=== PATIENT | female | born 1945 | race Caucasian/White ===

== ENCOUNTER 2023-07-18 04:08 | Emergency (ER) | payer MEDICARE, OTHER, SELFPAY ==
[2023-07-18] VITALS (11 sets, daily range): BP systolic 93–189; BP diastolic 73–120; PULSE 93–107; RESP 17–23; TEMP 36.8; O2SAT 93–98; BMI 45.7
--- NOTE | 2023-07-18 04:19 | ECG_ITS ---
[facility] Test Date: 2023-07-18 Pat Name: Hema Darden Department: Room: Gender: Female Service Desk Specialist: : 1945 Requested By: Rolando Perez Order Number: [id number] Jose MD: Ludin Middleton M.D. Measurements Intervals [place] Rate: 104 P: 39 ID: [id number] QRS: 32 QRSD: 81 T: 147 QT: 290 QTc: 382 Interpretive Statements Regular rhythm, possibly sinus tachycardia Heavy baseline artifact. Need to repeat ST DEVIATION AND MODERATE T-WAVE ABNORMALITY, CONSIDER LATERAL ISCHEMIA [-0.1+ mV T-WAVE IN I/aVL/V5/V6] No previous ECG available for comparison Electronically Signed On 07-18-2023 22:06:25 TOWING PILOT by Ludin Middleton M.D. [id number]
--- NOTE | 2023-07-18 04:29 | XRR_ITS ---
PROCEDURE INFORMATION: Exam: XR Chest Exam date and time: 07/18/2023 4:35 AM Age: 78 years old Clinical indication: Chest pressure; Patient HX: EMS arrival from detention for chest pain. Unable to obtain further history due to poor mentation. ; Additional info: C p TECHNIQUE: Imaging protocol: Radiologic exam of the chest. Views: 1 view. COMPARISON: No relevant prior studies available. FINDINGS: Lungs: Right lower lobe infiltrate. Pleural spaces: Unremarkable. No pleural effusion. No pneumothorax. Heart/Mediastinum: Cardiomegaly Bones/joints: Unremarkable. XR/XR chest 1V portable [id number] IMPRESSION: 1. Right lower lobe infiltrate. Pneumonia not excluded. 2. Cardiomegaly
--- NOTE | 2023-07-18 05:42 | W.ED.CHESTPA ---
HPI - Chest Pain General: Chief Complaint: Chest Pain Stated Complaint: CP Time Seen by Provider: 07/18/23 05:40 Source: patient Mode of arrival: ambulatory History of Present Illness: 78-year-old female presents emergency room complaining of chest and abdominal pain. She was recently hospitalized for sepsis. Per the patient she has not been feeling well in the last 4 days she is normally on oxygen at 2 L/min. She also tells me she was admitted with a pneumonia and received a PICC line for long-term antibiotics. I do not have any copies of the discharge summary or any labs that were done during the hospitalization she is not currently on antibiotics. She states chest and abdominal pain and resolved. She is on her baseline 2 L of oxygen. MD complaint: chest pain Onset (ago): day(s) (4) Timing of current episode: episodic Onset: during rest Pain location: substernal Pain radiation: none Severity: mild Relieving factors: nitroglycerin Exacerbating factors: nothing Associated symptoms: Reports dyspnea; Deny abdominal pain, diaphoresis, fever(s), leg edema, nausea, palpitations, sense of impending doom, syncope or vomiting Review of Systems Const: Denies: fever(s), chills or diaphoresis Card: Denies: chest pain, palpitations or syncope Resp: Reports: dyspnea GI: Denies: abdominal pain, nausea or vomiting : Denies: dysuria, urinary frequency or urinary urgency Musc: Denies: neck pain or back pain Skin/Breast: Denies: rash PFSH ED PFSH: Medical History (Updated 07/18/23 @ 15:21 by Amrit Samuels DO) Anemia Fibromyalgia Hyperlipidemia Hypertension Morbid obesity Sleep apnea Type 2 diabetes mellitus Physical Exam Const: GENERAL APPEARANCE: cooperative ORIENTATION/CONSCIOUSNESS: Yes awake HENMT: COMMON NORMALS: normocephalic, atraumatic and hearing grossly normal bilaterally HEAD & SCALP: normocephalic and atraumatic Resp: COMMON NORMALS: normal respiratory effort, No retractions and No use of accessory muscles AUSCULTATION: rales and wheezes Cardio: COMMON NORMALS: regular rhythm and No murmurs present (Cardio) RATE: tachycardic RHYTHM: regular rhythm GI: COMMON NORMALS: Soft to palpation and No hepatosplenomegaly present AUSCULTATION: Yes normoactive bowel sounds PALPATION: Yes Soft to palpation, No Tenderness to palpation present (GI), No Guarding due to palpation present (GI) and Yes No hepatosplenomegaly present Extremity: COMMON NORMALS: normal to inspection, capillary refill normal, no clubbing, cyanosis or edema, no calf tenderness and no pedal edema Skin: COMMON NORMALS: no rashes or lesions noted GENERAL SKIN EXAM: no rashes or lesions noted Course Vital Signs: Vital signs: Vital Signs Temperature 98.3 F 07/18/23 04:09 Pulse Rate 103 H 07/18/23 12:49 Respiratory Rate 22 H 07/18/23 07:00 Blood Pressure 181/106 07/18/23 12:49 Pulse Oximetry 98 07/18/23 12:49 Oxygen Delivery Me thod Nasal Cannula 07/18/23 12:49 Oxygen Flow Rate 2 07/18/23 12:49 MDM - Chest Pain Medical Decision Making if not improving may need to have endoscopy done. Recent hospitalization outpatient has COVID as well cover for secondary infection with vancomycin and Zosyn. Troponin elevated although patient has no acute EKG changes she was given Lovenox and CTA done to ensure the patient did not have PE associated with her COVID which could also Dr. the troponin. CTA is negative for PE but did show questionable right renal hematoma CT of the abdomen pelvis done shows right renal hematoma. We were not able to get records while she was here patient was previously at [facility] and will contact them regarding transfer back there they states that was present previously her hemoglobin is down slightly. Will transfer back to any [facility] for further cardiac evaluation. She will need to be there in the event that the hematoma worsens while she is getting anticoagulants they have available interventional radiology and urology should procedure need to be done. Medical Records I reviewed the patient's medical records. Lab Data I reviewed the patient's lab results. 07/18/23 09:27 07/18/23 08:00 Radiology Impressions Chest X-Ray 07/18/23 04:29 IMPRESSION: 1. Right lower lobe infiltrate. Pneumonia not excluded. 2. Cardiomegaly Chest CTA 07/18/23 08:35 IMPRESSION: 1. Right lower lobe infiltrate and small pleural effusion. 2. Patchy ground-glass opacities throughout both lung valdez. 3. No pulmonary embolism. 4. Partially visualized is fluid and/or hemorrhage within the right renal fossa. Dedicated CT of the abdomen is recommended Abdomen/Pelvis CT 07/18/23 10:56 IMPRESSION: Sub capsular right renal hematoma measuring 15 mm in thickness. Large amount of hemorrhage in the right pararenal space. The patient has no reported history of injury. COMMENTS: Consistent with the [employer]'s Incidental Findings Committee white paper (J Am Melva Radiol 2018): Any incidental renal lesion less than 1 cm or classified as too small to characterize, or any incidental cystic renal lesion characterized as simple-appearing, is likely benign. No follow-up imaging is recommended for these lesions per consensus recommendations based on imaging criteria. ADDENDUM: 07/18/23 1208 THIS REPORT CONTAINS FINDINGS THAT MAY BE CRITICAL TO PATIENT CARE. The findings were verbally communicated via telephone conference with AMRIT SAMUELS at 12:06 PM LEVERS LACE MACHINE OPERATOR on 07/18/2023. The findings were acknowledged and understood. Laboratory Results WBC 10.21 10^3/uL (3.29-11.43) 07/18/23 09:27 RBC 3.05 10^6/uL (3.85-5.65) L 07/18/23 09:27 Hgb 8.60 g/dL (11.27-16.99) L 07/18/23 09:27 Hct 27.3 % (36-47) L 07/18/23 09:27 MCV 89.5 fl (85-98) 07/18/23 09:27 MCH 28.2 pg (27-33) 07/18/23 09:27 MCHC 31.5 g/dL (30-55) 07/18/23 09:27 RDW 14.6 % (12.1-15.1) 07/18/23 09:27 Plt Count 374 10^3/cmm (157-399) 07/18/23 09:27 MPV 10.4 fL (7.4-10.4) 07/18/23 09:27 Lymph % (Auto) Not Reportable 07/18/23 09:27 [place] % (Auto) Not Reportable 07/18/23 09:27 Lymph # (Auto) Not Reportable 07/18/23 09:27 [place] # (Auto) Not Reportable 07/18/23 09:27 Total Counted 100 (0-100) 07/18/23 09:27 Atypical Lymphs % 0.0 % (0-5) 07/18/23 09:27 Absolute Neutrophils 7.1 10^3/cmm (1.4-6.5) H 07/18/23 09:27 Segmented Neutrophils 55 % 07/18/23 09:27 Abs Segm Neuts (Man) 5.6 10/cmm (1.6-7.1) 07/18/23 09:27 Band Neutrophils 15.0 % 07/18/23 09:27 Abs Band Neuts (Man) 1.5 10^3/cmm (0.0-1.2) H 07/18/23 09:27 Absolute Lymphocytes 1.8 10^3/cmm (1.2-3.4) 07/18/23 09:27 Lymphocytes (Manual) 18 % 07/18/23 09:27 Monocytes (Manual) 10.0 % 07/18/23 09:27 Absolute Monocytes 1.0 10^3/cmm (0.1-0.6) H 07/18/23 09:27 Eosinophils (Manual) 0 % 07/18/23 09:27 Absolute Eosinophils 0.0 10^3/cmm (0.0-0.7) 07/18/23 09:27 Basophils (Manual) 0.0 % 07/18/23 09:27 Absolute Basophils 0.0 10^3/cmm (0.0-0.2) 07/18/23 09:27 Metamyelocytes 1.0 % 07/18/23 09:27 Myelocytes 1.0 % 07/18/23 09:27 Nucleated RBCs 1.0 /100WBC (0-1) 07/18/23 09:27 Platelet Estimate Normal (Normal) 07/18/23 09:27 PT 19.10 SECONDS (12.1-14.9) H 07/18/23 14:18 INR 1.55 (0.8-1.2) H 07/18/23 14:18 APTT 55.1 SECONDS (23.9-36.7) H 07/18/23 14:18 Sodium 134 mmol/L (136-145) L 07/18/23 08:00 Potassium 3.7 mmol/L (3.5-5.1) 07/18/23 08:00 Chloride 98 mmol/L (98-107) 07/18/23 08:00 Carbon Dioxide 22 mmol/L (22-29) 07/18/23 08:00 Anion Gap 17.7 (5-19) 07/18/23 08:00 BUN 39 mg/dL (8-23) H 07/18/23 08:00 Creatinine 1.6 mg/dL (0.5-0.9) H 07/18/23 08:00 GFR Calculation Not Reportable 07/18/23 08:00 Glucose 96 mg/dL (65-115) 07/18/23 08:00 POC Glucose 114 mg/dL (70-110) H 07/18/23 05:58 Calculated Osmolality 287 mOsm/kg (285-295) 07/18/23 08:00 Lactic Acid 1.3 mmol/L (0.5-2.2) 07/18/23 08:00 Calcium 9.3 mg/dL (8.5-10.5) 07/18/23 08:00 Magnesium 1.6 mg/dL (1.7-2.3) L 07/18/23 08:00 Total Bilirubin 0.7 mg/dL (0.15-1.2) 07/18/23 08:00 AST 25 U/L (0-32) 07/18/23 08:00 ALT 23 U/L (0-33) 07/18/23 08:00 Alkaline Phosphatase 99 U/L (35-105) 07/18/23 08:00 Creatine Kinase 32 U/L (26-192) 07/18/23 08:00 Troponin T Baseline 236 ng/L (0-10) H* 07/18/23 08:00 Troponin T 120 Minute 229.2 ng/L (0-10) H 07/18/23 09:27 Delta Troponin T -6.8 ABS# (0-10) L 07/18/23 09:27 Troponin T Hi Sens 6Hr 222.6 ng/L (0-10) H 07/18/23 14:18 Troponin T Hi Sens 6Hr Delta -13.4 ng/L (0-12) L 07/18/23 14:18 NT-Pro-B Natriuret Pep 6542 pg/mL (0-450) H 07/18/23 08:00 Total Protein 6.7 g/dL (6.6-8.7) 07/18/23 08:00 Albumin 2.8 g/dL (3.5-5.2) L 07/18/23 08:00 Globulin 3.9 g/dL (1.3-4.6) 07/18/23 08:00 Lipase 102 U/L (13-60) H 07/18/23 08:00 Urine Color Yellow (Yellow) 07/18/23 06:29 Urine Appearance Clear (CLEAR) 07/18/23 06:29 Urine pH 5 (5-7) 07/18/23 06:[address] 1.010 (1.005-1.030) 07/18/23 06:29 Urine Protein 1+ (Negative) H 07/18/23 06:29 Urine Glucose (UA) Norm (Normal) 07/18/23 06:29 Urine Ketones Negative (Negative) 07/18/23 06:29 Urine Blood Trace (Negative) H 07/18/23 06:29 Urine Nitrate Negative (Negative) 07/18/23 06:29 Urine Bilirubin Neg (Negative) 07/18/23 06:29 Urine Urobilinogen Norm mg/dL (Negative) 07/18/23 06:29 Ur Leukocyte Esterase Negative (Negative) 07/18/23 06:29 Urine RBC Rare /hpf (0-2) 07/18/23 06:29 Urine WBC Rare /hpf (0-5) 07/18/23 06:29 Ur Squamous Epith Cells 0-4 /hpf (0-5) H 07/18/23 06:29 Amorphous Sediment Not Reportable 07/18/23 06:29 Urine Bacteria Trace /hpf (NONE) 07/18/23 06:29 Coronavirus 229E (PCR) Not detected (NOT DETECT) 07/18/23 06:02 Influenza Type A Ag negative (Negative) 07/18/23 06:02 Influenza Type B Ag negative (Negative) 07/18/23 06:02 SARS-CoV-2 (PCR) Detected (NOT DETECT) A 07/18/23 06:02 All radiology interpretation(s) finalized by discharge Discharge Plan Discharge Patient Disposition: Xfer Short-Term Hosp Clinical Impression: COVID-19, Pneumonia, Elevated troponin I level, Renal hematoma, right Condition: Stable Referrals: Thanh Chino MD [Primary Care Provider] - Patient Instructions: Opioid Safety, Pain Management Coding Level of Care Code ED Advisory Intern for Horacio Villegas
[2023-07-18 06:03] LABS: Glucose Point of Care 114 mg/dL (70-110)
--- NOTE | 2023-07-18 06:29 | ECG_ITS ---
[facility] Test Date: 2023-07-18 Pat Name: Hema Darden Department: Room: Gender: Female Metallography Teacher: : 1945 Requested By: Rolando Perez Order Number: [id number] Jose MD: Ludin Middleton M.D. Measurements Intervals [place] Rate: 96 P: 0 [place]: 0 QRS: 34 QRSD: 85 T: 48 QT: 318 QTc: 404 Interpretive Statements ATRIAL FIBRILLATION NONSPECIFIC ST & T-WAVE ABNORMALITY ABNORMAL RHYTHM ECG Compared to ECG 07/18/2023 04:09:06 Sinus tachycardia no longer present Possible ischemia no longer present T-wave abnormality still present Electronically Signed On 07-18-2023 22:19:40 RUBBER PRESS TENDER by Ludin Middleton M.D. [id number]
[2023-07-18 06:53] LABS: Influenza A by IFA negative (Negative); Influenza B by IFA negative (Negative)
[2023-07-18 06:58] LABS: Add Urine Microscopic? YES; Bilirubin Urine Neg (Negative); Blood Urine Trace (Negative); Glucose Urine UA Norm (Normal); Ketones Urine Negative (Negative); Leukocyte Esterase Urine Negative (Negative); Nitrate Urine Negative (Negative); Protein Urine 1+ (Negative); Urine Appearance Clear (CLEAR); Urine Color Yellow (Yellow); Urobilinogen Urine Norm (Negative); pH Urine 5 (5-7)
[2023-07-18 07:00] LABS: Add Urine Culture? No; Bacteria Urine TRACE /hpf; RBC Urine RARE /hpf (0-2); Squamous Epithelial Cell Urine 0-4 /hpf (0-5); WBC Urine RARE /hpf (0-5)
[2023-07-18 08:16] LABS: Adenovirus Not Detected (NOT DETECT); Chlamydia Pneumoniae Not Detected (NOT DETECT); Coronavirus 229E,HKU1,NL63,OC4 Not Detected (NOT DETECT); Human Metapneumovirus Not Detected (NOT DETECT); Human Rhinovirus/Enterovirus Not Detected (NOT DETECT); Influenza A Not Detected (NOT DETECT); Influenza A H1 Not Detected (NOT DETECT); Influenza A H1-2009 Not Detected (NOT DETECT); Influenza A H3 Not Detected (NOT DETECT); Influenza B Not Detected (NOT DETECT); Mycoplasma Pneumoniae Not Detected (NOT DETECT); Parainfluenza Virus Type 1 Not Detected (NOT DETECT); Parainfluenza Virus Type 2 Not Detected (NOT DETECT); Parainfluenza Virus Type 3 Not Detected (NOT DETECT); Parainfluenza Virus Type 4 Not Detected (NOT DETECT); Respiratory Syncytial Virus A Not Detected (NOT DETECT); Respiratory Syncytial Virus B Not Detected (NOT DETECT)
[2023-07-18 08:21] LABS: SARS-COV-2 Detected (NOT DETECT)
[2023-07-18] MEDS: piperacillin-tazobactam 3.375 GM in sodium chloride 0.9% (plus) 50 ML IV (08:21)
[2023-07-18 08:29] LABS: Troponin(5th) Baseline 236 ng/L (0-10)
[2023-07-18 08:30] LABS: Lactic Sepsis W/Reflex 1.3 mmol/L (0.5-2.2)
--- NOTE | 2023-07-18 08:35 | CTR_ITS ---
PROCEDURE INFORMATION: Exam: CTA Chest With Contrast Exam date and time: 07/18/2023 10:21 AM Age: 78 years old Clinical indication: Shortness of breath; Additional info: Hypoxia, chest pain, +covid TECHNIQUE: Imaging protocol: Computed tomographic angiography of the chest with contrast. Exam focused on the arteries. 3D rendering (Not supervised by radiologist): MIP and/or 3D reconstructed images were created by the technologist. Radiation optimization: All CT scans at this facility use at least one of these dose optimization techniques: automated exposure control; mA and/or kV adjustment per patient size (includes targeted exams where dose is matched to clinical indication); or iterative reconstruction. Contrast material: OMNI 350; Contrast volume: 82 ml; Contrast route: INTRAVENOUS (IV); REPORTING DATA: Count of CT and Cardiac NM exams in prior 12 months: This patient has received 0 known CTs and 0 known cardiac nuclear medicine studies in the 12 months prior to the current study. COMPARISON: CR (CHEST, ) 07/18/2023 4:35 AM RADIATION DOSE METRICS: Total DLP (mGy-cm): 405.71 FINDINGS: Pulmonary arteries: Normal. No pulmonary emboli. Aorta: Unremarkable. No aortic aneurysm. No aortic dissection. Lungs: Right lower lobe infiltrate. Ground-glass opacities throughout both lung valdez Pleural spaces: Small right pleural effusion Heart: Cardiomegaly. Coronary arteries: Coronary artery calcification Lymph nodes: Unremarkable. No enlarged lymph nodes. Retroperitoneal space: Partially visualized is fluid or hemorrhage in the right renal fossa. Bones/joints: Unremarkable. No acute fracture. Soft tissues: Unremarkable. CT/CT angio chest PE protcl [id number] IMPRESSION: 1. Right lower lobe infiltrate and small pleural effusion. 2. Patchy ground-glass opacities throughout both lung valdez. 3. No pulmonary embolism. 4. Partially visualized is fluid and/or hemorrhage within the right renal fossa. Dedicated CT of the abdomen is recommended
[2023-07-18 08:39] LABS: Alanine Aminotransferase 23 U/L (0-33); Albumin Level 2.8 g/dL (3.5-5.2); Alkaline Phosphatase 99 U/L (35-105); Anion Gap 17.7 (5-19); Aspartate Amino Transferase 25 U/L (0-32); Blood Urea Nitrogen 39 mg/dL (8-23); Calcium 9.3 mg/dL (8.5-10.5); Carbon Dioxide 22 mmol/L (22-29); Chloride 98 mmol/L (98-107); Creatine Phosphokinase 32 U/L (26-192); Globulin 3.9 g/dL (1.3-4.6); Glucose 96 mg/dL (65-115); Lipase 102 U/L (13-60); Magnesium 1.6 mg/dL (1.7-2.3); NT Pro B Type Natriuretic Pept 6542 pg/mL (0-450); Osmolality Calculated 287 mOsm/kg (285-295); Potassium 3.7 mmol/L (3.5-5.1); Sodium 134 mmol/L (136-145); Total Bilirubin 0.7 mg/dL (0.15-1.2); Total Protein 6.7 g/dL (6.6-8.7)
--- NOTE | 2023-07-18 08:50 | PC.PHAR ---
PT IS FROM [facility]-MEDICATIONS ENTERED ARE FROM THE PTS DERRICK AND TAZ THAT DELISA RASCON SENT WITH THE PT
[2023-07-18] MEDS: enoxaparin 120 mg/0.8 mL Syringe 110 MG SUBCUT (08:54)
[2023-07-18] MEDS: vancomycin 1,000 MG in sodium chloride 0.9% 250 ML 250 MG IV (08:55)
[2023-07-18 09:35] LABS: Hematocrit 27.3 % (36-47); Mean Corpuscular HGB Conc 31.5 g/dL (30-55); Mean Corpuscular Hemoglobin 28.2 pg (27-33); Mean Corpuscular Volume 89.5 fl (85-98); Mean Platelet Volume 10.4 fL (7.4-10.4); Platelet Count 374 10^3/cmm (157-399); Red Blood Count 3.05 10^6/uL (3.85-5.65); Red Cell Distribution Width 14.6 % (12.1-15.1); White Blood Count 10.21 10^3/uL (3.29-11.43)
[2023-07-18] MEDS: sodium chloride 0.9% 1,000 ML 150 ML IV (09:57)
[2023-07-18 10:06] LABS: Troponin 5 2HR 229.2 ng/L (0-10); Troponin 5 2HR Delta -6.8 ABS# (0-10)
[2023-07-18 10:12] LABS: Slide Review Slide Review Perform
[2023-07-18 10:14] LABS: Absolute Segmented Neutrophil 5.6 10/cmm (1.6-7.1); Band Neutrophils Absolute 1.5 10^3/cmm (0.0-1.2); Lymphocytes 18 %; Segmented Neutrophils 55 %; Total Cells Counted 100 (0-100)
[2023-07-18 10:15] LABS: Absolute Neutrophil 7.1 10^3/cmm (1.4-6.5); Platelet Estimate Normal (Normal)
[2023-07-18 10:16] LABS: Eosinophils 0 %; Lymphocytes Absolute 1.8 10^3/cmm (1.2-3.4)
[2023-07-18] MEDS: iohexol 350 mg/mL 500 mL Btl (per mL) IV (10:27)
--- NOTE | 2023-07-18 10:56 | CTR_ITS ---
PROCEDURE INFORMATION: Exam: CT Abdomen And Pelvis Without Contrast Exam date and time: 07/18/2023 11:31 AM Age: 78 years old Clinical indication: Abdominal pain; Flank; Right; Additional info: Flank pain TECHNIQUE: Imaging protocol: Computed tomography of the abdomen and pelvis without contrast. Radiation optimization: All CT scans at this facility use at least one of these dose optimization techniques: automated exposure control; mA and/or kV adjustment per patient size (includes targeted exams where dose is matched to clinical indication); or iterative reconstruction. REPORTING DATA: Count of CT and Cardiac NM exams in prior 12 months: This patient has received 0 known CTs and 0 known cardiac nuclear medicine studies in the 12 months prior to the current study. COMPARISON: CT angio chest PE protcl [id number] 07/18/2023 10:21 AM RADIATION DOSE METRICS: Total DLP (mGy-cm): 1104.01 FINDINGS: Pleural spaces: Right pleural effusion and infiltrate right lung base. Liver: Normal. No mass. Gallbladder and bile ducts: Postop cholecystectomy surgical change. Pancreas: Normal. No ductal dilation. Spleen: Normal. No splenomegaly. Adrenal glands: Normal. No mass. Kidneys and ureters:There is a subcapsular right renal hematoma measuring 15 mm in thickness. There is a large amount of surrounding hemorrhage. Subcentimeter cystic lesions in the left kidney. 18 mm and 14 mm low-density lesions in the right kidney. Stomach and bowel: Unremarkable. No obstruction. No mucosal thickening. Appendix: No evidence of appendicitis. Intraperitoneal space: Unremarkable. No free air. No significant fluid collection. Vasculature: Atherosclerotic change of the abdominal vasculature. Lymph nodes: Unremarkable. No enlarged lymph nodes. Urinary bladder: Unremarkable as visualized. Reproductive: Unremarkable as visualized. Bones/joints: Unremarkable. No acute fracture. Soft tissues: Unremarkable. Other findings: CT/CT kidney stone [id number] IMPRESSION: Sub capsular right renal hematoma measuring 15 mm in thickness. Large amount of hemorrhage in the right pararenal space. The patient has no reported history of injury. COMMENTS: Consistent with the [place] [employer]'s Incidental Findings Committee white paper (J Am Melva Radiol 2018): Any incidental renal lesion less than 1 cm or classified as too small to characterize, or any incidental cystic renal lesion characterized as simple-appearing, is likely benign. No follow-up imaging is recommended for these lesions per consensus recommendations based on imaging criteria.
[2023-07-18 14:38] LABS: INR 1.55 (0.8-1.2)
[2023-07-18 14:39] LABS: Partial Thromboplastin Time 55.1 SECONDS (23.9-36.7)
[2023-07-18 14:50] LABS: Troponin 5 6HR 222.6 ng/L (0-10); Troponin 5 6HR Delta -13.4 ng/L (0-12)
== END 2023-07-18 17:00 | disposition short-term general hospital (02) ==
PROVIDERS: Emergency Medicine; Emergency Provider Family Medicine; PCP Internal Medicine
DX: U07.1 COVID-19 (principal); J12.82 Pneumonia due to coronavirus disease 2019; R79.89 Other specified abnormal findings of blood chemistry; S37.011A Minor contusion of right kidney, initial encounter; I11.9 Hypertensive heart disease without heart failure; E78.5 Hyperlipidemia, unspecified; E11.9 Type 2 diabetes mellitus without complications; X58.XXXA Exposure to other specified factors, initial encounter
CPT/HCPCS: 36415; 36416; 71045; 71275; 74176; 80053; 81001; 82550; 82962; 83605; 83690; 83735; 83880; 84484; 85007; 85025; 85610; 85730; 87040; 87635; 87804; 93005; 96365; 96367; 96372; 99285; J1650; J2543; J3370; J7030; J7050; Q9967